=== PATIENT | female | born 1960 | race Two or more races ===

== ENCOUNTER 2019-09-30 19:13 | Emergency (ER) | payer OTHER ==
[~2019-09-30] VITALS: Ht 162.6 cm; Wt 90.9 kg
[2019-09-30] MEDS ORDERED: PLEASE ENTER ALLERGIES MC SCH (19:30)
[2019-09-30] MEDS ORDERED: DIPH,PERTUSS(ACELL),TET VAC/PF 0.5 ML IM-VACC ONE ×2 (19:30→19:33)
--- NOTE | 2019-09-30 19:47 | NUR ---
WATER PROVIDED TO PT.
--- NOTE | 2019-09-30 20:30 | NUR ---
ICE PACK APPLIED TO L ARM/ELBOW.
--- NOTE | 2019-09-30 20:49 | NUR ---
PT AMBULATED TO BR WITH A STEADY GAIT. A&O4
--- NOTE | 2019-09-30 21:12 | NUR ---
REPORT FROM GEORGIANA GILL. PT TO GET XRAYS. SPOUSE AT BEDSIDE
[2019-09-30] MEDS ORDERED: NEOSPORIN OINT. PKT 1 PACKET ONE (21:31)
[2019-09-30] MEDS ORDERED: ACETAMINOPHEN 500 MG TABLET ONE (21:41)
--- NOTE | 2019-09-30 21:46 | NUR ---
PT MEDICATED FOR PAIN. PT VERBALIZED UNDERSTANDING OF DISCHARGE INSTRUCTIONS. PT GETTING DRESSED.
[2019-09-30 21:49] VITALS: BP 137/82
[2019-09-30] MEDS ORDERED: ACETAMINOPHEN 500 MG TABLET PO ONE (22:00)
== END 2019-09-30 21:51 ==
LOC: ED 21:20
DX: S30.1XXA Contusion of abdominal wall, initial encounter (principal); S50.02XA Contusion of left elbow, initial encounter; R07.9 Chest pain, unspecified; F17.290 Nicotine dependence, other tobacco product, uncomplicated; F10.220 Alcohol dependence with intoxication, uncomplicated; W10.9XXA Fall (on) (from) unspecified stairs and steps, initial encounter; Y93.89 Activity, other specified; Y92.59 Other trade areas as the place of occurrence of the external cause; Y99.8 Other external cause status; Y90.9 Presence of alcohol in blood, level not specified
CPT/HCPCS: 71046; 90471; 90715; 99284